=== PATIENT | male | born 1970 | race Caucasian/White ===

== ENCOUNTER 2022-06-26 08:56 | Day surgery (SDC) | payer OTHER ==
[~2022-06-26] VITALS: Ht 172.7 cm; Wt 98.4 kg
[2022-06-26] MEDS ORDERED: fentaNYL citrate 0.05 MG/ML VIAL ONE (10:48)
[2022-06-26] MEDS ORDERED: LIDOCAINE 2% 100 MG/5 ML UJET TP ONE (10:48)
[2022-06-26] MEDS ORDERED: MIDAZOLAM 2 MG/2 ML VIAL ONE (10:48)
[2022-06-26] MEDS ORDERED: LABETALOL 20 MG/4 ML VIAL IVP ONE (12:15)
[2022-06-26] MEDS ORDERED: fentaNYL citrate 0.05 MG/ML VIAL IVP ONE (12:15)
[2022-06-26] MEDS ORDERED: MIDAZOLAM 2 MG/2 ML VIAL IVP ONE (12:15)
== END 2022-06-26 12:30 | disposition home or self-care (01) ==
LOC: MMU 08:56 → MDS 08:56
PROVIDERS: ATTEND Internal Medicine Gastroenterology
DX: Z12.11 Encounter for screening for malignant neoplasm of colon (principal); K22.70 Barrett's esophagus without dysplasia; K29.70 Gastritis, unspecified, without bleeding; K21.9 Gastro-esophageal reflux disease without esophagitis; I10 Essential (primary) hypertension; E78.00 Pure hypercholesterolemia, unspecified; F41.9 Anxiety disorder, unspecified; E11.9 Type 2 diabetes mellitus without complications; Z90.49 Acquired absence of other specified parts of digestive tract; Z79.84 Long term (current) use of oral hypoglycemic drugs; Z79.82 Long term (current) use of aspirin; Z79.899 Other long term (current) drug therapy
CPT/HCPCS: 36415; 43239; 45378; 86677; J2250; J3010